=== PATIENT | female | born 1960 | race Caucasian/White ===

== ENCOUNTER 2020-07-13 09:45 | Outpatient (CLI) | payer OTHER | END 2020-07-13 09:46 | disposition home or self-care (01) | LOC: DTY/OP 09:45 | PROVIDERS: ATTEND Surgery | DX: E66.01 Morbid (severe) obesity due to excess calories (principal) | CPT/HCPCS: 97802 ==

== ENCOUNTER 2020-07-21 10:23 | Outpatient (CLI) | payer OTHER | END 2020-07-21 10:24 | disposition home or self-care (01) | LOC: DTY/OP 10:23 | PROVIDERS: ATTEND Surgery | DX: E66.01 Morbid (severe) obesity due to excess calories (principal) | CPT/HCPCS: 97802 ==

== ENCOUNTER 2020-07-24 09:40 | Outpatient (CLI) | payer OTHER | END 2020-07-24 09:41 | disposition home or self-care (01) | LOC: DTY/OP 09:40 | PROVIDERS: ATTEND Surgery | DX: E66.01 Morbid (severe) obesity due to excess calories (principal) | CPT/HCPCS: 97802 ==

== ENCOUNTER 2020-08-03 10:30 | Outpatient (CLI) | payer OTHER | END 2020-08-03 10:31 | disposition home or self-care (01) | LOC: DTY/OP 10:30 | PROVIDERS: ATTEND Surgery | DX: E66.01 Morbid (severe) obesity due to excess calories (principal) | CPT/HCPCS: 97802 ==

== ENCOUNTER 2020-08-05 10:39 | Outpatient (CLI) | payer OTHER | END 2020-08-05 10:40 | disposition home or self-care (01) | LOC: DTY/OP 10:39 | PROVIDERS: ATTEND Surgery | DX: E66.01 Morbid (severe) obesity due to excess calories (principal) | CPT/HCPCS: 97802 ==

== ENCOUNTER 2020-08-06 14:20 | Outpatient (CLI) | payer OTHER | END 2020-08-06 14:21 | disposition home or self-care (01) | LOC: DTY/OP 14:20 | PROVIDERS: ATTEND Surgery | DX: E66.01 Morbid (severe) obesity due to excess calories (principal) | CPT/HCPCS: 97802 ==

== ENCOUNTER 2020-09-14 16:22 | Outpatient (CLI) | payer OTHER ==
[2020-09-14 17:36] LABS: #Monocytes 0.6 10x3/uL (0.0-1.1); #Neutrophils 3.4 10x3/uL (1.5-8.4); %Basophils 0.3 % (0.0-2.0); %Eosinophils 0.6 % (0.0-6.0); %Lymphocytes 41.4 % (18.0-47.0); %Monocytes 8.5 % (0.0-10.0); %Neutrophils 49.1 % (40.0-75.0); Hemoglobin 13.7 g/dL (12.0-15.5); Mean Corpuscular HGB CONC 33.6 g/dL (32.0-36.0); Mean Corpuscular Hemoglobin 32.1 pg (27.0-33.0); Mean Corpuscular Volume 95.6 fl (81.6-98.3); Mean Platelet Volume 10.6 fl (7.4-10.4); Platelet Count 236 10x3/uL (150-450); Red Blood Cell (RBC) Count 4.27 10x6/uL (3.90-5.03)
[2020-09-14 17:48] LABS: ALT (SGPT) 28 U/L (8-55); AST (SGOT) 27 U/L (5-34); Albumin 4.2 g/dL (3.5-5.0); Alkaline Phosphatase 72 U/L (40-110); Anion Gap 17 mmol/L (10-20); BUN (Urea Nitrogen) 22 mg/dL (9.8-20.1); Bilirubin, Total 0.4 mg/dL (0.2-1.2); Calc. Creatinine Clearance 0 mL/min (70-130); Calcium 10.5 mg/dL (7.8-10.44); Carbon Dioxide 25 mmol/L (22-29); Chloride 104 mmol/L (98-107); Globulin 2.6 g/dL (2.4-3.5); Glucose 88 mg/dL (70-105); Potassium 4.4 mmol/L (3.5-5.1); Protein, Total 6.8 g/dL (6.0-8.3); Sodium 142 mmol/L (136-145)
[2020-09-14 20:28] LABS: Hemoglobin A1c 5.1 % (4.0-6.0)
[2020-09-15 00:07] LABS: SARS-CoV-2 PCR by NAA Not Detected (NotDetected)
== END 2020-09-14 16:23 | disposition home or self-care (01) ==
LOC: LABBT 16:22
PROVIDERS: ATTEND Surgery
DX: Z01.818 Encounter for other preprocedural examination (principal); E66.01 Morbid (severe) obesity due to excess calories; Z20.822 Contact with and (suspected) exposure to COVID-19
CPT/HCPCS: 71046; 80053; 83036; 85025; 93005; 93010; U0003; U0005

== ENCOUNTER 2020-09-14 16:30 | Inpatient (IN) | payer OTHER ==
[2020-09-16 10:33] VITALS: BMI 33.5
[2020-09-17] MEDS ORDERED: Fentanyl 100 MCG/2 ML VIAL ONE ×3 (10:37→15:27)
[2020-09-17] MEDS ORDERED: Heparin 5,000 UNITS/ML VIAL ONE (10:40)
[2020-09-17] MEDS ORDERED: Famotidine/PF 20 mg/2ml Vial ONE (12:26)
[2020-09-17] MEDS ORDERED: Midazolam HCl 2 mg/2 ml Vial ONE (12:26)
[2020-09-17] MEDS ORDERED: Bupivacaine 0.25% HCL 30 ML VIAL ONE (13:05)
[2020-09-17] MEDS ORDERED: Lidocaine 1% w/Epinephrine 1:100K 20 ML VIAL ONE (13:05)
[2020-09-17] MEDS ORDERED: PROPOFOL 200 MG/20 ML VIAL ONE (13:36)
[2020-09-17] MEDS ORDERED: PHENYLEPHRINE-NS 100 MCG/ML 10 ML SYRINGE ONE (13:36)
[2020-09-17] MEDS ORDERED: Lidocaine 1% PF 5 ML VIAL ONE (13:36)
[2020-09-17] MEDS ORDERED: Ondansetron PF 4 MG/2 ML Vial ONE (13:36)
[2020-09-17] MEDS ORDERED: Glycopyrrolate 0.2 MG/ML 5 ML SYRINGE ONE (13:36)
[2020-09-17] MEDS ORDERED: Dexamethasone 20 MG/5 ML VIAL ONE (13:36)
[2020-09-17] MEDS ORDERED: Rocuronium Bromide 10 MG/ML (10ML VIAL) ONE (13:36)
[2020-09-17] MEDS ORDERED: diphenhydrAMINE 50 MG/ML VIAL ONE (13:36)
[2020-09-17] MEDS ORDERED: Ketorolac Tromethamine 30 MG/ML VIAL ONE (13:36)
[2020-09-17] MEDS ORDERED: SUGAMMADEX SODIUM 200 MG/2 ML VIAL ONE (15:08)
[2020-09-17] MEDS ORDERED: SUGAMMADEX SODIUM 500 MG/5 ML VIAL ONE (15:08)
[2020-09-17] MEDS ORDERED: Dextrose 50% Abboject 50 ML SYRINGE SLOW IVP PRN (15:13)
[2020-09-17] MEDS ORDERED: diphenhydrAMINE 50 MG/ML VIAL IVP PRN ×2 (15:13)
[2020-09-17] MEDS ORDERED: Naloxone HCl 0.4 mg/ml Vial IV PRN (15:13)
[2020-09-17] MEDS ORDERED: Ondansetron PF 4 MG/2 ML Vial IVP PRN (15:13)
[2020-09-17] MEDS ORDERED: fentaNYL Citrate/PF 2,000 MCG in Sodium Chloride 0.9% 60 ML IV PRN (15:13)
[2020-09-17] MEDS ORDERED: Hydrocodone-Acetamin 15 ML UDCUP PO PRN (15:13)
[2020-09-17] MEDS ORDERED: diphenhydrAMINE 25 MG CAP PO PRN (15:13)
[2020-09-17] MEDS ORDERED: Zolpidem Tartrate 5 MG TAB PO PRN (15:13)
[2020-09-17] MEDS ORDERED: diphenhydrAMINE 50 MG/ML VIAL IM PRN (15:13)
[2020-09-17] MEDS ORDERED: Promethazine HCl 25 MG/ML VIAL IM PRN ×3 (15:13)
[2020-09-17] MEDS ORDERED: Ondansetron HCl/PF 4 MG/2 ML Vial IVP PRN (15:13)
[2020-09-17] MEDS ORDERED: Meperidine HCl/PF 25 MG/ML VIAL SLOW IVP PRN (15:13)
[2020-09-17] MEDS ORDERED: Dextrose 5% in Water 1,000 ML IV PRN (15:13)
[2020-09-17] MEDS ORDERED: hydrALAZINE 20 MG/ML VIAL SLOW IVP PRN (15:13)
[2020-09-17] MEDS ORDERED: Communication Order-Pharmacy FS SCH (15:15)
[2020-09-17] MEDS ORDERED: Sodium Chloride 0.9% (PF) 10 ML VIAL FS PRN (15:30)
[2020-09-17] MEDS: Ondansetron PF 4 MG/2 ML Vial IVP PRN (16:59)
[2020-09-17] MEDS: D5 1/2 NS w/20 mEq KCL 1,000 ML IV SCH (16:59)
[2020-09-18] MEDS: Ondansetron PF 4 MG/2 ML Vial IVP PRN (01:37)
[2020-09-18] MEDS: D5 1/2 NS w/20 mEq KCL 1,000 ML IV SCH ×2 (01:37→08:23)
[2020-09-18 05:41] LABS: #Lymphocytes 1.1 thou/uL (1.20-3.40); #Monocytes 0.5 thou/uL (0.11-0.59); #Neutrophils 9.9 thou/uL (1.40-6.50); %Basophils 0.1 % (0.0-1.0); %Eosinophils 0.1 % (0.0-10.0); %Lymphocytes 9.2 % (21.0-51.0); %Monocytes 4.4 % (0.0-10.0); %Neutrophils 86.2 % (42.0-75.0); Hemoglobin 12.9 g/dL (12.0-16.0); Mean Corpuscular HGB CONC 33.4 g/dL (32.0-36.0); Mean Corpuscular Hemoglobin 32.4 pg (27.0-31.0); Mean Platelet Volume 8.2 fL (7.4-10.4); Platelet Count 204 thou/uL (130-400); RBC Distribution Width 11.1 % (11.5-14.5); Red Blood Cell (RBC) Count 3.97 mill/uL (4.20-5.40); White Blood Cell (WBC) Count 11.5 thou/uL (4.8-10.8)
[2020-09-18 05:59] LABS: Anion Gap 10 mmol/L (10-20); BUN (Urea Nitrogen) 14 mg/dL (9.8-20.1); Calc. Creatinine Clearance 83 mL/min (70-130); Calcium 8.9 mg/dL (7.8-10.44); Carbon Dioxide 25 mmol/L (22-29); Chloride 104 mmol/L (98-107); Glucose 201 mg/dL (70-105); Potassium 4.3 mmol/L (3.5-5.1); Sodium 135 mmol/L (136-145)
[2020-09-18] MEDS ORDERED: Hydrocodone-Acetamin 15 ML UDCUP PO PRN (07:35)
[2020-09-18] MEDS ORDERED: Pantoprazole 40 MG VIAL IVP SCH (09:00)
[2020-09-18] MEDS ORDERED: Enoxaparin Sodium 40 MG/0.4 ML SYRINGE SC SCH (09:00)
[2020-09-18 10:43] VITALS: BP 105/69; TEMP 98.6
== END 2020-09-18 11:15 | disposition home or self-care (01) | DRG 621 ==
LOC: EDSTATUS 16:30 → SURG A 09-17 08:47 → EDSTATUS 09-17 16:30
PROVIDERS: ADMIT Surgery; ATTEND Surgery
PROC: 0DB64Z3 Excision of Stomach, Percutaneous Endoscopic Approach, Vertical (ICD-10-PCS; principal; 2020-09-17)
PROC: 0BQT4ZZ Repair Diaphragm, Percutaneous Endoscopic Approach (ICD-10-PCS; 2020-09-17)
PROC: 8E0W4CZ Robotic Assisted Procedure of Trunk Region, Percutaneous Endoscopic Approach (ICD-10-PCS; 2020-09-17)
PROC: 0DJ08ZZ Inspection of Upper Intestinal Tract, Via Natural or Artificial Opening Endoscopic (ICD-10-PCS; 2020-09-17)
DX: E66.01 Morbid (severe) obesity due to excess calories (principal); Z68.35 Body mass index [BMI] 35.0-35.9, adult; Z20.822 Contact with and (suspected) exposure to COVID-19; K44.9 Diaphragmatic hernia without obstruction or gangrene; K75.81 Nonalcoholic steatohepatitis (NASH); Z79.899 Other long term (current) drug therapy; Z98.51 Tubal ligation status; Z98.49 Cataract extraction status, unspecified eye; Z83.3 Family history of diabetes mellitus; Z82.49 Family history of ischemic heart disease and other diseases of the circulatory system; Z87.891 Personal history of nicotine dependence
CPT/HCPCS: 36415; 71046; 80048; 80053; 83036; 85025; 88307; 93005; 94760; C9113; J0690; J1100; J1200; J1644; J1650; J1885; J2250; J2405; J2550; J2704; J3010; J3480; S0020; S0028; U0003; U0005